=== PATIENT | female | born 1935 | race Caucasian/White ===

== ENCOUNTER 2018-09-12 11:04 | Observation (INO) ==
[2018-09-12] MEDS ORDERED: CeFAZolin Syr 3,000MG/30 ML 3,000 MG/30 ML SYRINGE IVPB ONE (11:27)
--- NOTE | 2018-09-12 11:29 | Anesthesia Evaluation PreOp ---
Date of Encounter: 09/12/18 Time of Encounter: 11:27 - Past History Planned Operation: Right Robotic Total Knee Arthroplsty Cardiac History: HTN Pulmonary History: Denies Any Significant HX FIELD COLLECTOR History: Denies Any Significant HX Other Medical History: Thyroid (Hypo) Anesthesia History: No Prior Anesthetic Complications, Past Anesthesia (GB) : No Alcohol Use: none Drug use: none Medications and Allergies Aspirin Enteric Coated [Aspirin EC] 325 mg PO BID #20 tablet.dr 09/11/18 [Rx] Docusate [Colace] 100 mg PO BID 10 Days #20 capsule 09/11/18 [Rx] OxyCODONE Immed Rel [Roxicodone 5 MG] 5 mg PO Q6HR PRN 7 Days #28 tablet 09/11/18 [Rx] Allergy/AdvReac Type Severity Reaction Status Date / Time No Known Allergies Allergy Verified 09/09/18 10:14 - Meds/Allergy Pre-op Review Medications Reviewed: Yes Allergies Reviewed: Yes Beta Blockers on Current Med List: No Anesthesia Results - Labs Laboratory Tests 09/09/18 09/09/18 09/09/18 10:46 10:46 10:46 WBC 7.2 Hgb 14.4 Hct 44.9 Plt Count 269 INR 0.9 Sodium 138 Potassium 4.3 Chloride 103 Carbon Dioxide 25 BUN 11 Creatinine 0.86 - Imaging EKG: report reviewed (SINUS RHYTHM POSSIBLE LEFT ATRIAL ENLARGEMENT MARKED LEFT AXIS DEVIATION LEFT BUNDLE BRANCH BLOCK) Additional studies: Echocardiogram Name: Monica Green Date of Study: 07/18/2018 EV/EV echocardiogram Impressions: LVEF 70%. Normal LV chamber size and systolic function. Basal sigmoid septum. Mild left ventricular diastolic dysfunction. Normal right ventricular structure and function. No significant valvular dysfunction. No pulmonary hypertension. Anesthesia Exam O2 Sat Height 1.65 m Height 1.65 m Weight 71.668 kg Weight 71.668 kg O2 Sat by Pulse Oximetry 98 Vital Signs Temp Pulse Resp BP Pulse Ox 97.9 F 69 18 155/78 98 09/12/18 11:42 09/12/18 11:42 09/12/18 11:42 09/12/18 11:42 09/12/18 11:42 NPO (# of Hours): > 8 hrs Pain Scale: 0 Pain Scale Used: Numeric (1 - 10) - HEENT Pupil (Motor): Pupils equal, EOMI Mallampati: II Teeth: Missing Denture Type: Upper: Complete Oral Opening: Greater than 3 - FIELD COLLECTOR LOC: Oriented FIELD COLLECTOR Motor: Normal RUE, Normal LUE, Normal RLE, Normal LLE, Normal Face FIELD COLLECTOR Sensory: Normal: RUE, LUE, RLE, LLE, Face - Cardiac Rhythm: Regular Murmur: None JVD: No Carotid Bruit: No - Pulmonary Breath Sounds: bilateral Clear Respiratory Effort: Symmetrical Anesthesia Assess/Plan Level of consciousness: Cooperative Anesthetic Plan: Regional Nerve Block, Spinal Regional Nerve Block Plan: Adductor canal, IPACK Autologous Blood: Yes Monitoring Plan: Standard Monitors Recovery Plan: PACU
[2018-09-12] MEDS ORDERED: CeFAZolin Syr 2,000MG/20 ML 2,000 MG/20 ML SYRINGE IVPB ONE (11:31)
[2018-09-12] MEDS ORDERED: Celecoxib 100 MG CAPSULE PO ONE (11:31)
--- NOTE | 2018-09-12 11:31 | History & Physical Report ---
Date of Encounter: 09/12/18 Time of Encounter: 11:31 24 Hour HP Update - Instructions Instructions: If the History and Physical is less than 30 days old and was completed prior to A.M. admission and or procedure and has NOT been updated on calendar day of procedure please complete this update prior to performing procedure. - Update Patient reports changes in Medical Condition: No Changes in examination, assessment, or condition: No Changes in Medication: No Preop tests/diagnostics Reviewed: Yes Surgery Remains Indicated: Yes Consent for Planned Operative Procedure(s) Verified: Yes - Pre-Operative Checklist Preoperative Checklist Indicated: No Prophylactic Antibiotic Ordered: Yes Is VTE Prophylaxis Indicated?: Yes
[2018-09-12] MEDS ORDERED: Dexamethasone 4 MG/ML VIAL ONE ×2 (11:32→12:54)
[2018-09-12] MEDS ORDERED: Lidocaine -MPF 2% 2 ML VIAL ONE ×2 (11:32)
[2018-09-12] MEDS ORDERED: *HR* FentaNYL (PF) 100 MCG/2 ML VIAL ONE (11:32)
[2018-09-12] MEDS ORDERED: *HR* Propofol 200 MG/20 ML VIAL IVP ONE (11:32)
[2018-09-12] MEDS ORDERED: Gabapentin 300 MG CAPSULE PO ONE (11:32)
[2018-09-12] MEDS ORDERED: Albuterol 2.5 MG/3 ML NEBULIZER IH ONE (11:33)
[2018-09-12] MEDS ORDERED: *HR* Labetalol 20 MG/4 ML SYRINGE IVP PRN (11:33)
[2018-09-12] MEDS ORDERED: *HR* Promethazine 25 MG/ML VIAL IVP PRN (11:33)
[2018-09-12] MEDS ORDERED: *HR* OxyCODONE Immed Rel 5 MG TABLET PO PRN (11:33)
[2018-09-12] MEDS ORDERED: Ondansetron 4 MG/2 ML VIAL IVP ONE (11:33)
[2018-09-12] MEDS ORDERED: *HR* HYDROmorphone (PF) 1 MG/ML SYRINGE IVP PRN (11:33)
[2018-09-12] MEDS ORDERED: ROPIVACAINE HCL/PF 0.5% 30 ML VIAL ONE (12:04)
[2018-09-12] MEDS ORDERED: *HR* Morphine Sulfate/PF 10 MG/10 ML AMPUL ONE (12:06)
[2018-09-12] MEDS ORDERED: Acetaminophen IV 1,000 MG/100 ML INFUS..BTL ONE (12:06)
[2018-09-12] MEDS ORDERED: Propofol 500 MG/50 ML INFUS..BTL ONE (12:27)
[2018-09-12] MEDS ORDERED: Ethanol\\Acetic Acid\\Na Ace\\Ben 1,000 ML IRRIG.SOLN IR ONE (12:35)
--- NOTE | 2018-09-12 13:17 | Anesthesia Procedures ---
Date of Encounter: 09/12/18 Time of Encounter: 12:30 Procedures: Anesthesia - Epidural/Spinal Patient ID/Chart reviewed: Yes Patient examined: Yes Supplemental Oxygen: Nasal Cannula Supplemental Oxygen Rate (L/min): 2 Sedation: Fentanyl (mcg): 100 Site Prep: Aseptic Technique, Sterile prep and drape, 0.5% Chlorhexidine/Alcohol Patient position: upright Local Anesthetic: Lidocaine 1% (3 ml) Amount of Local Anesthetic used: 3 Spinal Needle Gauge: 22 Spinal Dose: 2.5 ml 0.5% bupivacaine 200 mcgs duramorph Procedure: right robotic total knee Vitals + FHT's: Vital Signs/O2 Sat/Glucose, Most Current Temp Pulse Resp BP Pulse Ox 09/12/18 12:20 71 18 163/75 100 09/12/18 12:05 71 18 154/78 100 09/12/18 11:42 97.9 F 69 18 155/78 98 - Nerve Block Procedure Date: 09/12/18 Time: 12:35 Surgical Procedure: right robotic knee Checklist: Correct Patient Identifier, Correct procedure, History checked Correct side: Right Monitor Applied: EKG, BP, Pulse Oximetry Indication: Post Op Analgesia Block Type: Other (adductor canal) Catheter placed: No Sterile Technique: Yes Ultrasound used: Yes Anatomy identified: Yes Visual spread of Local: Yes Neuro Stimulation: No Blood on Needle Aspiration: No Smooth Injection of Local: Yes Pain with Injection of Local: No Prep: Chlorhexadine Needle: 21 x 100 mm Stimuplex Local: Ropivacaine (0.5% with ) Volume (cc): 25 Number of Attempts: 1 Complications: None/effective block Vitals: Vital Signs/O2 Sat, Most Current Temp Pulse Resp BP Pulse Ox 97.9 F 71 18 163/75 100 09/12/18 11:42 09/12/18 12:20 09/12/18 12:20 09/12/18 12:20 09/12/18 12:20
[2018-09-12] MEDS ORDERED: EPHEDrine 50 MG/ML VIAL ONE (13:19)
--- NOTE | 2018-09-12 13:27 | Discharge Summary ---
Orders not resulted at time of discharge: Pending orders 09/12/18 00:01 XR knee RT 1-2V [XR] Routine H/H [Hemoglobin and Hematocrit] [HEME] Routine 09/12/18 11:21 US anesthesia pain block [US] Routine Date of Encounter: 09/15/18 Time of Encounter: 12:30 - Discharge Diagnosis (1) Status post total right knee replacement Priority: Primary Status: Acute (2) Osteoarthritis of right knee Priority: Primary Status: Acute Qualifiers: Osteoarthritis type: primary Qualified Code(s): M17.11 - Unilateral primary osteoarthritis, right knee (3) Hypertension Priority: Primary Status: Acute Qualifiers: Hypertension type: essential hypertension Qualified Code(s): I10 - Essential (primary) hypertension (4) Left bundle branch block (LBBB) Priority: Secondary Status: Acute (5) Hyperlipidemia Priority: Secondary Status: Acute Qualifiers: Hyperlipidemia type: unspecified Qualified Code(s): E78.5 - Hyperlipidemia, unspecified (6) Hypothyroidism Priority: Secondary Status: Acute Qualifiers: Hypothyroidism type: unspecified Qualified Code(s): E03.9 - Hypothyroidism, unspecified - Hospital Course Hospital course: Ms. Green is a 82 year old female status post Right robotic-assisted Total knee replacement 09/12/18 with history of OA, LBBB, HTN, HLD, hypothyroidism. Patient did have issues with pain control in addition to episodes of dizziness and hypotension which resolved with fluid hydration. Pain was better controlled by time of discharge with addition of muscle relaxer. She participated in therapy. Stable for discharge. Patient seen at bedside, no concerns at this time, feeling much better. A&O x 3 Afebrile, vital signs stable. Dressings c/d/i. No calf tenderness to palpation, good dorsiflexion of foot, sensation intact distally Labs reviewed. H/H 10.1/31.9 - stable, asymptomatic Pain control: adequate Participating in PT. All questions and concerns addressed. Educated on use of incentive spirometer. Encouraged ambulation and proper hydration. Patient educated on post-operative restrictions and post-operative care. Assessment and plan: Continue with postoperative care Discharge plan: Home with home therapy, discharge today. - Time Spent with Patient Total time spent providing and/or coordinating discharge services: - Discharge Medications Home Medications: Aspirin Enteric Coated [Aspirin EC] 325 mg PO BID #20 tablet. 09/11/18 [Rx] Docusate [Colace] 100 mg PO BID 10 Days #20 capsule 09/11/18 [Rx] OxyCODONE Immed Rel [Roxicodone 5 MG] 5 mg PO Q6HR PRN 7 Days #28 tablet 09/11/18 [Rx] Levothyroxine [Synthroid] 88 mcg PO 0630 09/12/18 [History] Lisinopril [Zestril] 20 mg PO DAILY 09/12/18 [History] Vit A/Vit C/Vit E/Zinc/Copper [Preservision Areds Tablet] 1 tab PO DAILY 09/12/18 [History] Allergies/Adverse Reactions: Allergy/AdvReac Type Severity Reaction Status Date / Time No Known Allergies Allergy Verified 09/12/18 12:14 Date of admission: 09/12/17 Primary care physician: Tomas Cruz Consults: 09/12/18 15:09 Consult to Occupational Therapy [CONS] Routine Comment: Evaluate, develop and implement POC Reason for Consult: post knee surgery Does patient have active BEDREST order?: No Is patient medically & hemodynamically stable?: Yes Consult to Orthopedic Navigator [CONS] [CONS] Routine Consult to Physical Therapy [CONS] Routine Comment: Evaluate, develop and impliment POC Reason for Consult: post knee surgery Does patient have active BEDREST order?: No Is patient medically & hemodynamically stable?: Yes Consult to Route Aide [CONS] Routine Reason for SW Consult: post op joint replacement RT Post Op Consult [CONS] Routine 09/12/18 15:25 Consult to Pastoral Services [CONS] Routine Comment: Discharging clinician: Obed Cortes Anticipated date of discharge: 09/15/18 Labs on day of discharge: Short CBC 09/15/18 Range/Units 09:28 Hgb 10.1 L (11.5-15.4) g/dL Hct 31.9 L (35.3-44.9) % - Impressions Knee X-Ray 09/12/18 00:01 IMPRESSION: Status post right knee arthroplasty without evidence of acute postoperative complication D/ / 09/12/2018 14:48:31 Jose Antonio Jiménez MD / [email or web address] Interpreting Provider: Jose Antonio Jiménez MD - Patient Status Disposition: Home Health Service Condition: Good Functional capacity at discharge: uses cane/walker Overall status at discharge: patient is back to baseline - Discharge Instructions Follow Up With: Tomas Cruz [Primary Care Provider] - Additional Instructions: Discharge Instructions: Total Knee Replacement Please call [facility] ([phone]), your Primary Care Physician, or report to the Emergency Room if you have any of the following symptoms: Nausea, vomiting, fever greater that 101.5, swelling, chest pain, shortness of breath, increased pain/redness/drainage/odor for your incision site, numbness/tingling, or any other concerning symptoms. ACTIVITY:Weight-bearing as tolerated. You may progress off support (crutches or walker) as tolerated. Incentive Spirometer 10 times an hour. MEDICATIONS: Upon discharge resume your home medications. Take all the medications as prescribed. Take a stool softener if taking narcotic pain medications. Stool softeners are only effective if you drink enough fluids. Drink 6-8 glass of water or fluids a day, unless this is not allowed for another health problem. Despite using stool softeners, if you haven't had a bowel movement in 3 days, please switch to a gentle laxative. Gentle laxatives are sold over the counter. You should have a bowel movement within 24 hours, if not call the office. You will be discharged from the hospital with a prescription for pain medication. You are encouraged to decrease the use of narcotic pain medication as tolerated. Should you require a refill, please call the office. [facility] prescribes narcotic pain medication for only 4-6 weeks after surgery. If you require pain medication beyond this time period, you may be referred to your Primary Care Physician or to the Pain Clinic for further evaluation. Plan ahead for refills on pain medication as many narcotics either need to be picked up at the office or mailed. It is best to call 48-72 hours in advance of needing a prescription refill so you don't run out of medication. To help control the post-operative pain, you may take NSAIDs (Aleve,Advil, Motrin, Ibuprofen, Naprosyn) or Tylenol as prescribed on the bottle in addition to the pain medication. ANTICOAGULATION (blood thinners): Continue your Aspirin, Lovenox or Coumadin as prescribed to help prevent a blood clot in the leg or in the lungs. As long as your incision remains dry and you tolerate the NSAIDs (Aleve, Advil, Motrin, ibuprofen, naprosyn), it is OK to use the NSAIDS while you are taking your anticoagulation medication. Should your incision start to drain, stop the NSAID and contact our office. Common symptoms of blood clot in the legs include: localized pain, swelling, calf tenderness, redness or discoloration of the skin. Blood clot in the lung symptoms include: shortness of breath, rapid pulse, sweating, and chest pain that worsens with deep breathing, coughing up blood, lightheadedness, feelings of anxiety. If you experience any of these symptoms notify your physician immediately, go to the emergency room, or if having trouble breathing, call 911. WOUND CARE: Leave the dressing on for 7 to 10days. You may change the dressing if it becomes saturated greater than 50%. Do not get the dressing wet at anytime. Wash your hands with antibacterial soap, rinse and dry prior to any wound care. If you have jewel the visiting nurse or rehab facility can remove the stapes 10-14 days after surgery and place steri-strips across the wound. Leave the steri-strips in place until they fall off on their won. You may let water from the shower run on top of the steri-strips. If you do not have a visiting nurse or rehab facility, you will need to return to the office at 10-14 days for the jewel to be removed. If you have itching or redness around the dressing call the office. FOLLOW-UP: Please follow up with your surgeon in the orthopedic clinic in 4 weeks from the day of surgery. If you have jewel that need to be removed, you will need to come back to the office in 10-14 days from the day of surgery. - Diet and Activity Activity: as per physical therapy Diet: advance to your usual diet
--- NOTE | 2018-09-12 13:38 | Orthopedic Operative Note ---
Date of procedure: 09/12/18 Pre-op diagnosis: Right knee arthritis Post-op diagnosis: same Procedure: Procedure: Right robotic-assisted Total knee replacement Estimated blood loss: 100 cc Hardware: Metal and polyethylene replacement. [place] Femur: 3 Tibia: 4 TS insert: 11 Patella: 36 Exam Under anesthesia: 3 degree flexion contracture 1 degree varus as calculated by the robot full flexion and no instability Procedural Notes: Grade 4 arthritic changes all 3 compartments. Operative procedure: The patient was brought to the operating room and placed on the operating room table. After general anesthesia was administered the operative knee was examined. Findings were noted in the exam under anesthesia. The operative extremity was prepped and draped in sterile surgical fashion. The patient received IV antibiotics prior to skin incision. A standard midline incision was made centered over the patella. The incision was made through the skin and subcutaneous tissue. A medial parapatellar tendon approach was performed. Care was taken to preserve tissue along the medial aspect of the patella. And to protect the patella tendon. The deep MCL was released off the medial tibia. The infra patella fat pad was excised. The patella was everted and cut was made at the level of the insertion of the quadriceps and patella tendon. The patella was sized the guide was seated and the lug holes are drilled. Knee was brought into flexion. Patient noted to have grade 4 arthritic changes all 3 compartments. Steinmann pins were placed in the tibia and the femur for the tibial and femoral arrays respectively. Checkpoints were also placed in the tibia and the femur for calculation purposes. The knee including the femur and the tibial registered. Osteophytes, ACL and PCL were excised at this point. Extension and flexion were assessed with a valgus stress components were adjusted on the computer to balance the knee. Femoral cuts were made first with robotic assistance, these included the anterior cut posterior cuts chamfer cuts. Tibial cut was then performed with robotic assistance as well. Bone fragments were removed, as well as the medial and lateral meniscus. The size 3 femoral guide was seated box cut was made lug holes are drilled. The size 4 tibial tray was seated and prepared with the fin cutter. Trial reduction with the 11 TS Coni revealed extension of 0 degree and 0 degree varus valgus full flexion. No varus valgus instability. Trial reduction revealed excellent patella tracking. All trial components were removed all bony surfaces were irrigated. The Tibia was seated followed by the femur, The selected Coin size was seated and secured patella. Patient had similar findings for motion and stability. The knee was closed by the PA. The knee was then irrigated out with 2 L of pulse irrigation. The extensor mechanism was closed with #2 FiberWire suture and #2 PDS suture. The subcutaneous tissue was then irrigated and closed deep with #1 PDS suture superficially with 0 PDS suture and skin was closed with zip tie The patient was then placed in a sterile dressing and a postoperative brace extubated and transferred to recovery room in stable condition. Anesthesia: spinal Surgeon: Obed Cortes Was there an apartment assistant manager present: No Estimated blood loss (cc): 100 Condition: stable Disposition: PACU
[2018-09-12] MEDS: Ringers Solution, Lactated 1,000 ML IVC SCH ×2 (13:51→13:54)
[2018-09-12 14:35] LABS: Hematocrit 37.5 % (35.3-44.9)
[2018-09-12 14:37] LABS: Hemoglobin 12.3 g/dL (11.5-15.4)
--- NOTE | 2018-09-12 14:49 | Anesthesia Evaluation Post Op ---
Date of Encounter: 09/12/18 Time of Encounter: 14:48 - Vital Signs Vital Signs: Vital Signs/O2 Sat/Glucose, Most Recent Temp Pulse Resp BP Pulse Ox 97.7 F 52 12 111/84 100 09/12/18 14:43 09/12/18 14:43 09/12/18 14:43 09/12/18 14:43 09/12/18 14:43 - Lungs Lungs: Clear Ascult./Percussion - Airway Airway: Non-obstructed - Cardiovascular Regular Rate - Mental Status Mental Status: Alert & Oriented, Answers Appropriately - Pain Pain Scale: 0 - Nausea Vomiting Nausea Vomiting: Not Present - Hydration Hydration: NPO - Discharge PostOp Status: Transfer Patient to floor
[2018-09-12] MEDS ORDERED: traMADol 50 MG TABLET PO PRN (15:09)
[2018-09-12] MEDS ORDERED: Sennosides 8.6 MG TABLET PO PRN (15:09)
[2018-09-12] MEDS ORDERED: MOM Conc 10 ML UD.LIQ PO PRN (15:09)
[2018-09-12] MEDS ORDERED: Naloxone 0.4 MG/ML INJ IVP PRN (15:09)
--- NOTE | 2018-09-12 15:58 | Physician Discharge Referral ---
Home Health/Hosp Referral Info Transfer to: Home Health Attending Provider: Sebastian - Diagnosis (1) Status post total right knee replacement Priority: Primary Status: Acute (2) Osteoarthritis of right knee Priority: Primary Status: Acute (3) Hypertension Priority: Secondary Status: Acute (4) Left bundle branch block (LBBB) Priority: Secondary Status: Acute (5) Hyperlipidemia Priority: Secondary Status: Acute (6) Hypothyroidism Priority: Secondary Status: Acute - Respiratory Orders None Smoking Cessation: Smoking cessation has been advised. For more information, call the [place] Tobacco Quit Line at 8-578-JGWC-NOW. - Diet/Nutrition Diet/Nutrition Orders: Regular - Activity Activity Orders: Up ad luis antonio, Ambulate, Chair, Walker - Services Needed Following services are medically necessary services: Nursing, Home Health Aide, Physical Therapy, Occupational Therapy Home Care Orders: Opsite dressing, leave intact until first post-operative visit. If dressing becomes >50% saturated, contact office, remove dressing and place appropriate dressing in its place. Do not allow for dressing to get wet. Zipline/[place] in place, plan to remove at post-operative day #14-16. Total Joint Precautions x 6 weeks Apply cold therapy wrap 3-6x/day for 20 minutes at a time. Encourage ambulation throughout the day Use Incentive spirometer 10x/hour. Elevate affected extremity above heart as tolerated. Brace: Wear knee immobilizer at night x 2 weeks. - Transfer Medications Home Medications: Aspirin Enteric Coated [Aspirin EC] 325 mg PO BID #20 tablet. 09/11/18 [Rx] Docusate [Colace] 100 mg PO BID 10 Days #20 capsule 09/11/18 [Rx] OxyCODONE Immed Rel [Roxicodone 5 MG] 5 mg PO Q6HR PRN 7 Days #28 tablet 09/11/18 [Rx] Levothyroxine [Synthroid] 88 mcg PO 0630 09/12/18 [History] Lisinopril [Zestril] 20 mg PO DAILY 09/12/18 [History] Vit A/Vit C/Vit E/Zinc/Copper [Preservision Areds Tablet] 1 tab PO DAILY 09/12/18 [History] Allergies/Adverse Reactions: Allergy/AdvReac Type Severity Reaction Status Date / Time No Known Allergies Allergy Verified 09/12/18 12:14 Certification: Further, I certify that my clinical findings support that this patient is homebound (i.e. absences from home require considerable and taxing effort and are for medical reasons or islam services or infrequently or short duration when for other reasons) because: Homebound Reason: Post-surgery restriction and or conditions limit ability to leave home Attestation: My signature below is to certify that this patient is under my care and that I, or nurse practitioner, or a physician assistant chief train dispatcher working with me, has a [id number] encounter with this patient.
[2018-09-12] MEDS: *HR* Enoxaparin 30 MG/0.3 ML SYRINGE SQ SCH (17:38)
[2018-09-13] MEDS: *HR* Enoxaparin 30 MG/0.3 ML SYRINGE SQ SCH ×2 (06:27→16:51)
[2018-09-13] MEDS: *HR* OxyCODONE/APAP 5/325 TABLET PO PRN (06:30)
--- NOTE | 2018-09-13 06:42 | Orthopedics Progress Note ---
Date of Encounter: 09/13/18 Time of Encounter: 06:42 Subjective Interval history: Patient was seen this morning doing well without complaints. Afebrile vital signs stable. Operative extremity: Neurovascularly intact Dressing clean dry and intact Calves nontender Assessment and plan: Continue with postoperative care Hematocrit 37 plan for discharge tomorrow Objective Vital signs: Vital Signs Temp Pulse Resp BP Pulse Ox 09/13/18 04:25 97.6 F 57 16 119/66 95 09/13/18 03:55 99 09/12/18 23:12 97.6 F 55 15 160/74 95 09/12/18 20:17 97 09/12/18 19:02 97.9 F 59 16 134/58 99 09/12/18 17:39 97.5 F L 73 17 126/71 98 09/12/18 16:25 96.3 F L 54 16 124/77 94 09/12/18 15:36 97.4 F L 50 16 139/69 100 09/12/18 15:31 96.2 F L 50 16 148/86 100 09/12/18 14:53 97.7 F 55 12 128/69 99 09/12/18 14:43 97.7 F 52 12 111/84 100 09/12/18 14:33 50 12 129/60 99 09/12/18 14:23 60 12 111/59 98 09/12/18 14:13 97.8 F 65 16 113/57 96 09/12/18 12:20 71 18 163/75 100 09/12/18 12:05 71 18 154/78 100 09/12/18 11:42 97.9 F 69 18 155/78 98 Intake and Output 09/12/18 09/12/18 09/13/18 15:59 23:59 07:59 Intake Total 1020 / 1020 400 / 400 50 / 50 Output Total 100 / 100 450 / 450 Balance 920 / 920 400 / 400 -400 / -400 Intake: IV Fluids 1020 / 1020 100 / 100 Lactated Ringers 1,000 ML @ 25 1000 / 1000 mls/hr IVC .Q24H [facility] Rx#: [id number] Ancef Syringe 2,000 MG/20 ML 2, 20 / 20 000 mg In 20 ml @ 200 mls/hr IVPB PREOP ONE Rx#:[id number] Ancef 2,000 MG In 0.9 % Sodium 100 / 100 Chloride 100 ML @ 200 mls/hr IVPB Q8H [facility] Rx#:[id number] Oral 300 / 300 50 / 50 Output: Urine 450 / 450 Estimated Blood Loss 100 / 100 Other: # Voids 1 1 Weight 71.668 kg 79.1 kg Patient Weight 09/13/18 23:59 Weight 79.1 kg - Labs CBC & BMP: 09/12/18 14:25 Consult Discharge Plan - Plan Referrals: Tomas Cruz [Primary Care Provider] - Prescriptions: Aspirin Enteric Coated [Aspirin EC] 325 mg PO BID #20 tablet. Docsammyte [Colace] 100 mg PO BID 10 Days #20 capsule OxyCODONE Immed Rel [Roxicodone 5 MG] 5 mg PO Q6HR PRN 7 Days #28 tablet PRN Reason: Severe Pain
[2018-09-13] MEDS: Multivit/Ca/Min/Fe/FA 1 TAB TABLET PO SCH (08:49)
[2018-09-13] MEDS: Lisinopril 20 MG TABLET PO SCH (08:49)
[2018-09-13] MEDS: Ondansetron 4 MG/2 ML VIAL IVP PRN (10:01)
[2018-09-13 11:01] LABS: Hematocrit 36.9 % (35.3-44.9); Hemoglobin 12.2 g/dL (11.5-15.4)
[2018-09-13 11:21] LABS: BUN/Creatinine Ratio 18 (6-26); Blood Urea Nitrogen 15 mg/dL (8-23); Calcium 9.3 mg/dL (8.6-10.3); Carbon Dioxide 28 mEq/L (23-29); Chloride 101 mEq/L (98-107); Glucose 151 mg/dL (70-105); Osmolality,Calculated 284 (280-300); Potassium 4.1 mEq/L (3.5-5.1); Sodium 135 mEq/L (136-145); eGFR For Non-African Americans > 60 (> 60)
[2018-09-13] MEDS: Mag Hydrox/Al Hydrox/Simeth 30 ML UDC PO PRN ×2 (11:45→22:40)
[2018-09-13] MEDS: *HR* OxyCODONE Immed Rel 5 MG TABLET PO PRN ×2 (13:19→17:17)
[2018-09-13] MEDS ORDERED: Acetaminophen IV 1,000 MG/100 ML INFUS..BTL IVPB PRN (15:45)
--- NOTE | 2018-09-13 17:33 | Event Note ---
Date of Encounter: 09/13/18 Time of Encounter: 12:25 PCR - POD#1 s/p Right robotic-assisted Total knee replacement 09/12/18 Patient seen at bedside, without complaints other than mild heartburn/reflux which she states she gets frequently and usually takes maalox for and will give today. A&O x 3 Afebrile, vital signs stable. Dressings c/d/i. No calf tenderness to palpation, good dorsiflexion of foot, sensation intact distally Labs reviewed. H/H 12.2/36.9 - stable, asymptomatic Pain control: adequate at time of exam, later patient requesting something different - will add lidoderm patch and tylenol. Consider muscle relaxer if still not well controlled Participating in PT. All questions and concerns addressed. Educated on use of incentive spirometer. Encouraged ambulation and proper hydration. Patient educated on post-operative restrictions and post-operative care. Assessment and plan: Continue with postoperative care Discharge plan: Home with home therapy, discharge possibly tomorrow.
[2018-09-13] MEDS: Temazepam 15 MG CAPSULE PO PRN (22:41)
[2018-09-14] MEDS: Ondansetron 4 MG/2 ML VIAL IVP PRN ×2 (02:23→10:46)
[2018-09-14] MEDS: *HR* OxyCODONE/APAP 5/325 TABLET PO PRN (02:30)
[2018-09-14] MEDS: *HR* Enoxaparin 30 MG/0.3 ML SYRINGE SQ SCH ×2 (05:05→16:39)
[2018-09-14 06:44] LABS: Hematocrit 29.3 % (35.3-44.9)
[2018-09-14 06:46] LABS: Hemoglobin 9.7 g/dL (11.5-15.4)
[2018-09-14] MEDS ORDERED: Ketorolac 15 MG/ML VIAL IVP SCH ×2 (07:45→12:00)
--- NOTE | 2018-09-14 07:59 | Orthopedics Progress Note ---
Date of Encounter: 09/14/18 Time of Encounter: 07:59 Subjective Interval history: Patient was seen this morning with anterior knee pain Afebrile vital signs stable. Operative extremity: Neurovascularly intact Dressing clean dry and intact Calves nontender Assessment and plan: Continue with postoperative care Hematocrit 29 plan for discharge today Objective Vital signs: Vital Signs Temp Pulse Resp BP Pulse Ox 09/14/18 06:38 97.7 F 68 16 138/74 97 09/14/18 04:12 97.8 F 73 14 134/66 96 09/13/18 23:03 98.5 F 67 15 127/70 96 09/13/18 18:42 98.0 F 80 15 146/80 96 09/13/18 17:00 98.0 F 63 15 109/52 94 Intake and Output 09/13/18 09/13/18 09/14/18 15:59 23:59 07:59 Intake Total 720 / 720 240 / 240 Balance 720 / 720 240 / 240 Intake: Oral 720 / 720 240 / 240 Other: Meal Lunch Percent of Meal Consumed 100% # Voids 1 1 # Urine Diapers 1 Weight 78.9 kg Patient Weight 09/14/18 23:59 Weight 78.9 kg - Labs CBC & BMP: 09/14/18 06:33 09/13/18 10:35 Labs: Abnormal lab results Hgb 9.7 g/dL (11.5-15.4) L D 09/14/18 06:33 Hct 29.3 % (35.3-44.9) L 09/14/18 06:33 Sodium 135 mEq/L (136-145) L 09/13/18 10:35 Glucose 151 mg/dL (70-105) H 09/13/18 10:35 Consult Discharge Plan - Plan Referrals: Tomas Cruz [Primary Care Provider] - Prescriptions: Aspirin Enteric Coated [Aspirin EC] 325 mg PO BID #20 tablet. Docusate [Colace] 100 mg PO BID 10 Days #20 capsule OxyCODONE Immed Rel [Roxicodone 5 MG] 5 mg PO Q6HR PRN 7 Days #28 tablet PRN Reason: Severe Pain
[2018-09-14 08:27] LABS: BUN/Creatinine Ratio 17 (6-26); Blood Urea Nitrogen 16 mg/dL (8-23); Calcium 8.8 mg/dL (8.6-10.3); Carbon Dioxide 27 mEq/L (23-29); Chloride 107 mEq/L (98-107); Glucose 101 mg/dL (70-105); Osmolality,Calculated 287 (280-300); Potassium 4.2 mEq/L (3.5-5.1); Sodium 138 mEq/L (136-145); eGFR For Non-African Americans 58 (> 60)
[2018-09-14] MEDS: *HR* OxyCODONE Immed Rel 5 MG TABLET PO PRN ×2 (09:10→15:39)
[2018-09-14] MEDS: Multivit/Ca/Min/Fe/FA 1 TAB TABLET PO SCH (09:10)
[2018-09-14] MEDS: Lisinopril 20 MG TABLET PO SCH (09:10)
[2018-09-14] MEDS: Ringers Solution, Lactated 1,000 ML IVC SCH ×2 (10:45→22:05)
[2018-09-14] MEDS: Ketorolac 15 MG/ML VIAL IVP SCH ×2 (15:40→22:02)
--- NOTE | 2018-09-14 16:41 | Event Note ---
Date of Encounter: 09/14/18 Time of Encounter: 12:00 PCR - POD#2 s/p Right robotic-assisted Total knee replacement 09/12/18 Patient seen at bedside, complaining of increase in pain today compared to yesterday and complaining of muscles feeling tight. She states she just doesnt feel good right now and had a vagal episode after therapy this morning where she became very dizzy/lightheaded. A&O x 3 Afebrile, vital signs stable except for the drop in BP (70/49) right after morning therapy, fluid hydration was given and BP did improve (100/53). Dressings c/d/i. No calf tenderness to palpation, good dorsiflexion of foot, sensation intact distally Labs reviewed. H/H 9.7/29.3 - stable, asymptomatic Pain control: still inadequate after addition of lidoderm patch and tylenol yesterday. Will add muscle relaxer now. Participating in PT. All questions and concerns addressed. Educated on use of incentive spirometer. Encouraged ambulation and proper hydration. Patient educated on post-operative restrictions and post-operative care. Assessment and plan: Continue with postoperative care Discharge plan: Home with home therapy, discharge possibly tomorrow.
[2018-09-14] MEDS: Temazepam 15 MG CAPSULE PO PRN (22:07)
[2018-09-15] MEDS: *HR* Enoxaparin 30 MG/0.3 ML SYRINGE SQ SCH (05:59)
--- NOTE | 2018-09-15 07:59 | Orthopedics Progress Note ---
Date of Encounter: 09/15/18 Time of Encounter: 07:58 Subjective Interval history: Patient was seen this morning with anterior knee pain Afebrile vital signs stable. Operative extremity: Neurovascularly intact Dressing clean dry and intact Calves nontender Assessment and plan: Continue with postoperative care discharge today Objective Vital signs: Vital Signs Temp Pulse Resp BP Pulse Ox 09/15/18 06:53 97.8 F 83 16 144/79 98 09/15/18 04:04 97.9 F 76 15 146/73 97 09/14/18 22:51 98.2 F 83 16 145/74 97 09/14/18 19:14 98.0 F 69 16 125/71 97 09/14/18 16:45 98.5 F 71 16 119/63 98 09/14/18 12:25 68 143/63 09/14/18 11:15 100/53 09/14/18 11:10 70/49 09/14/18 11:00 92/52 09/14/18 10:54 98.1 F 64 17 114/57 Intake and Output 09/14/18 09/14/18 09/15/18 15:59 23:59 07:59 Intake Total 550 / 550 2019 2020 Output Total 200 / 200 Balance 550 / 550 1820 / 1820 Intake: IV Fluids 1000 / 1000 Lactated Ringers 1,000 ML @ 75 1000 / 1000 mls/hr IVC .[id number] [facility] Rx#: [id number] Oral 550 / 550 1020 / 1020 Output: Urine 200 / 200 Other: Meal Dinner Percent of Meal Consumed 75% # Voids 1 1 Blood Glucose* 120 - Labs CBC & BMP: 09/14/18 06:33 09/14/18 07:55 Labs: Abnormal lab results Hgb 9.7 g/dL (11.5-15.4) L D 09/14/18 06:33 Hct 29.3 % (35.3-44.9) L 09/14/18 06:33 Est GFR (Non-Af Amer) 58 (> 60) L 09/14/18 07:55 POC Glucose 120 mg/dL (70-99) H 09/14/18 10:48 Consult Discharge Plan - Plan Referrals: Tomas Cruz [Primary Care Provider] -
[2018-09-15] MEDS: Multivit/Ca/Min/Fe/FA 1 TAB TABLET PO SCH (08:25)
[2018-09-15] MEDS: Lisinopril 20 MG TABLET PO SCH (08:26)
[2018-09-15] MEDS: *HR* OxyCODONE Immed Rel 5 MG TABLET PO PRN ×2 (09:15→13:43)
[2018-09-15 09:43] LABS: Hematocrit 31.9 % (35.3-44.9); Hemoglobin 10.1 g/dL (11.5-15.4)
[2018-09-15 15:48] VITALS: BP 137/63
== END 2018-09-15 17:14 | disposition home health service (06) ==
LOC: 3NENU 11:04 → SAMDAY 11:04 → 3NENU 14:55
PROVIDERS: ADMIT Orthopaedic Surgery; ATTEND Orthopaedic Surgery